=== PATIENT | female | born 1970 | race Caucasian/White ===

== ENCOUNTER 2017-04-13 16:19 | Emergency (ER) | payer BC ==
[~2017-04-13] VITALS: Ht 172.7 cm; Wt 80.2 kg
[2017-04-13 16:21] VITALS: BP 130/81
[2017-04-13] MEDS ORDERED: DEXAMETHASONE 4 MG/ML, 1ML ONE (17:21)
[2017-04-13] MEDS ORDERED: DEXAMETHASONE 4 MG TABLET ONE (17:22)
[2017-04-13] MEDS ORDERED: DEXAMETHASONE 4 MG TABLET PO ONE (17:30)
== END 2017-04-13 18:08 | disposition home or self-care (01) ==
LOC: ED 18:00
DX: J00 Acute nasopharyngitis [common cold] (principal)
CPT/HCPCS: 87081; 87147; 87880; 99284